=== PATIENT | female | born 1965 | race American Indian/Alaskan Native ===

== ENCOUNTER 2017-01-25 14:30 | Emergency (ER) | payer SELFPAY ==
[2017-01-25] MEDS ORDERED: CATAPRES PO ONE (17:36)
--- NOTE | 2017-01-25 18:02 | Emergency Department Report ---
ED General Adult HPI - General Chief complaint: Headache Stated complaint: HBP/HEADACHE Time Seen by Provider: 01/25/17 17:10 Source: patient Mode of arrival: Ambulatory Limitations: No Limitations - History of Present Illness -: Gradual Location: head Radiation: non-radiation Consistency: intermittent Improves with: none Worsens with: none Associated Symptoms: headaches. denies: confusion, chest pain, cough, diaphoresis, fever/chills, loss of appetite, malaise, nausea/vomiting, rash, seizure, shortness of breath, syncope, weakness Treatments Prior to Arrival: none - Related Data Allergies Allergy/AdvReac Type Severity Reaction Status Date / Time No Known Allergies Allergy Unverified 01/25/17 15:52 ED Review of Systems ROS: Stated complaint: HBP/HEADACHE Other details as noted in HPI Comment: All other systems reviewed and negative Constitutional: no symptoms reported Eyes: as per HPI ENT: as per HPI Respiratory: no symptoms reported Cardiovascular: as per HPI Endocrine: no symptoms reported ED Past Medical Hx - Surgical History Additional Surgical History: Fibroid Tumors, Hysterectomy - Social History Smoking Status: Current Every Day Smoker Substance Use Type: None ED Physical Exam - General Limitations: No Limitations General appearance: alert, in no apparent distress - Head Head exam: Present: atraumatic - Eye Eye exam: Present: normal appearance, PERRL, EOMI. Absent: conjunctival injection, nystagmus - ENT ENT exam: Present: normal exam - Neck Neck exam: Present: normal inspection. Absent: tenderness, meningismus - Respiratory Respiratory exam: Present: normal lung sounds bilaterally. Absent: respiratory distress, wheezes, rales, rhonchi, stridor - Cardiovascular Cardiovascular Exam: Present: regular rate - GI/Abdominal GI/Abdominal exam: Present: soft. Absent: distended, tenderness, guarding - Rectal Rectal exam: Present: deferred - Extremities Exam Extremities exam: Present: normal inspection, full ROM, normal capillary refill. Absent: tenderness - Back Exam Back exam: Present: normal inspection, full ROM - Neurological Exam Neurological exam: Present: alert, altered, oriented X3, CN II-XII intact, normal gait, reflexes normal. Absent: abnormal gait, motor sensory deficit - Psychiatric Psychiatric exam: Present: normal affect, normal mood - Skin Skin exam: Present: warm, dry, intact, normal color. 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 Critical care attestation.: If time is entered above; I have spent that time in minutes in the direct care of this critically ill patient, excluding procedure time. ED Disposition Clinical Impression: Elevated blood pressure reading, Head ache, Obesity Disposition: DISCHARGED TO HOME OR SELFCARE Is pt being admited?: No Does the pt Need Aspirin: No Condition: Good Instructions: Weight Management (ED), Acute Headache (ED), Obesity (ED), DASH Eating Plan (ED), Hypertension (ED) Additional Instructions: rest fluids follow up pcp benedicto for eval for your bp. they will do baseline tests and follow you over time in the meantime, diet and exercise; and continue your no smoking low salt diet no fast food no fried food drink plenty of water Referrals: CHASE ELLIOTT MD [Primary Care Provider] - 3-5 Days MARY ELLEN GÓMEZ MD [Staff Physician] - 3-5 Days Time of Disposition: 18:04
[2017-01-25 18:37] VITALS: BP 151/97
== END 2017-01-25 18:36 | disposition home or self-care (01) ==
LOC: ED 14:30
DX: R51 Headache (principal); R03.0 Elevated blood-pressure reading, without diagnosis of hypertension; F17.200 Nicotine dependence, unspecified, uncomplicated; E66.9 Obesity, unspecified
CPT/HCPCS: 99282

== ENCOUNTER 2018-01-24 15:50 | Emergency (ER) | payer OTHER ==
[2018-01-24] MEDS ORDERED: FIORICET PO ONE (20:47)
--- NOTE | 2018-01-24 21:08 | Emergency Department Report ---
HPI - General Chief Complaint: High BP Time Seen by Provider: 01/24/18 20:44 - HPI HPI: Patient is a 52-year-old female with a history of hypertension who presents to ED complaining of elevated blood pressure and headaches 2 days. 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 Patient states that since yesterday she is having some intermittent, 3 out of 10 intensity, aching, throbbing frontal headache. Patient states she takes amlodipine 10 mg once a day And took it this morning. She denies chest pain, shortness of breath, blurry vision, dizziness ED Past Medical Hx - Past Medical History Previous Medical History?: Yes Hx Hypertension: Yes - Surgical History Past Surgical History?: Yes Additional Surgical History: Fibroid Tumors, Hysterectomy - Social History Smoking Status: Current Every Day Smoker Substance Use Type: None - Medications Home Medications: Home Medications Medication Instructions Recorded Confirmed Last Taken Type Butalb/Acetamin/Caff 50-325-40 1 tab PO Q8H PRN #24 tablet 01/24/18 Unknown Rx [Fioricet] ED Review of Systems ROS: Stated complaint: DIZZY HYPERTENSION Other details as noted in HPI Constitutional: denies: chills, fever Eyes: denies: eye pain, eye discharge, vision change ENT: denies: ear pain, throat pain Respiratory: denies: cough, shortness of breath, wheezing Cardiovascular: denies: chest pain, palpitations Endocrine: no symptoms reported Gastrointestinal: denies: abdominal pain, nausea, diarrhea Genitourinary: denies: urgency, dysuria, discharge Musculoskeletal: denies: back pain, joint swelling, arthralgia Skin: denies: rash, lesions Neurological: denies: headache, weakness, paresthesias Psychiatric: denies: anxiety, depression Hematological/Lymphatic: denies: easy bleeding, easy bruising Physical Exam - Physical Exam Vital Signs: Vital Signs 01/24/18 01/24/18 15:55 21:00 Temperature 98.9 F Pulse Rate 80 Respiratory 18 16 Rate Blood Pressure 166/89 O2 Sat by Pulse 96 Oximetry Physical Exam: GENERAL: Alert and oriented x3, no apparent distress, Normal Gait, atraumatic. HEAD: Head is normocephalic and a-traumatic. EYES: Extra ocular muscles are intact. Pupils are equal, round, and reactive to light and accommodation. NECK: Supple. Non edematous, No carotid bruits. No lymphadenopathy or thyromegaly. LUNGS: Symetrical with respiration, No wheezing, no rales or crackles, CTAB. HEART: S1, S2 present, regular rate and rhythm without murmur, no rubs, no gallops. Non tender to palpation NEUROLOGIC: The patient is cooperative with no focal neurologic deficits. Cranial nerves II through XII are grossly intact. Normal speech. Normal sensation in bilateral upper and lower extremities, No loss of sensation, SKIN: Warm and dry, No lesions, No ulceration or induration present. ED Course Vital Signs 01/24/18 01/24/18 15:55 21:00 Temperature 98.9 F Pulse Rate 80 Respiratory 18 16 Rate Blood Pressure 166/89 O2 Sat by Pulse 96 Oximetry ED Medical Decision Making - EKG Data EKG shows normal: sinus rhythm Rate: normal - EKG Data Interpretation: normal EKG - Medical Decision Making 52-year-old female presents with elevated blood pressure. ED course: Patient received Fioricet in the ED for headache. EKG was obtained. EKG which shows no a abnormality within normal limits. I discussed this with the patient. Discussed patient to continue taking her blood pressure medication. Patient was not given medication ED due normalized blood pressure here in the ED. I discussed the patient to monitor blood pressure daily and take blood pressure medication as needed I also discussed follow-up with the primary care physician to manage and treat her hypertension and possibly change her dosing is current medication is not manage her blood pressure. Patient had no neurological deficit. Vital signs are normal she is in no acute or respiratory distress. Critical care attestation.: If time is entered above; I have spent that time in minutes in the direct care of this critically ill patient, excluding procedure time. ED Disposition Clinical Impression: Uncontrolled hypertension Disposition: DC-01 TO HOME OR SELFCARE Is pt being admited?: No Does the pt Need Aspirin: No Condition: Stable Instructions: Hypertension (ED), Weight Management (ED), Low Sodium Diet (ED) Additional Instructions: Make sure to follow up with the primary care physician as discussed. Take all your medications as you've been prescribed. If you have any worsening symptoms or develop new symptoms please return to ED immediately. Prescriptions: Butalb/Acetamin/Caff 50-325-40 [Fioricet] 1 tab PO Q8H PRN #24 tablet PRN Reason: Headache Referrals: PRIMARY CARE, [Primary Care Provider] - 3-5 Days NIDHI DANIELS MD [Referring] - 3-5 Days [facility] [Provider Group] - 3-5 Days [facility] [Outside] - 3-5 Days [facility] [Outside] - 3-5 Days Forms: Accompanied Note, Work/School Release Form(ED) Time of Disposition: 21:17
[2018-01-24] MEDS ORDERED: APRESOLINE ONE (21:55)
[2018-01-24] MEDS ORDERED: APRESOLINE PO ONE (21:55)
[2018-01-24 23:32] VITALS: BP 156/94
== END 2018-01-24 23:27 | disposition home or self-care (01) ==
LOC: ED 15:50
DX: I10 Essential (primary) hypertension (principal); F17.200 Nicotine dependence, unspecified, uncomplicated; Z90.710 Acquired absence of both cervix and uterus
CPT/HCPCS: 93005; 93010; 99282

== ENCOUNTER 2018-06-10 22:23 | Emergency (ER) | payer OTHER ==
[2018-06-10 22:47] VITALS: BP 149/86
== END 2018-06-11 02:20 | disposition left against medical advice (07) ==
LOC: ED 22:23
DX: R51 Headache (principal); Z53.21 Procedure and treatment not carried out due to patient leaving prior to being seen by health care provider